=== PATIENT | male | born 1970 | race Caucasian/White ===

== ENCOUNTER 2017-04-07 12:05 | Outpatient (CLI) | payer BC ==
[~2017-04-07] VITALS: Ht 180.3 cm; Wt 92.5 kg
[~2017-04-07 12:05] MED LIST: AC500T PO; ACHD5005 PO; ASPI-587 PO; BISO1TAB8 PO; CYCL10TA9 PO; PRD20T PO; TRAM50TA2 PO
[2017-04-07 12:19] VITALS: BP 119/78
[2017-04-07] MEDS ORDERED: ASPI-999 PO (12:22)
[2017-04-07] MEDS ORDERED: TRAM50TA2 PO (12:22)
[2017-04-07] MEDS ORDERED: BISO1TAB3 PO (12:22)
== END 2017-04-07 12:25 | disposition home or self-care (01) ==
LOC: PREOP 12:05
PROVIDERS: ATTEND Podiatrist Foot & Ankle Surgery
DX: Z01.818 Encounter for other preprocedural examination (principal); Z11.2 Encounter for screening for other bacterial diseases; M20.12 Hallux valgus (acquired), left foot; M89.372 Hypertrophy of bone, left ankle and foot
CPT/HCPCS: 87081

== ENCOUNTER → 2017-04-28 | Day surgery (SDC) | payer BC ==
[~2017-04-28] VITALS: Ht 180.3 cm; Wt 92.5 kg
[~2017-04-28] MED LIST changes: +ASPI-999 PO; +BISO1TAB3 PO; +BUPIVACAINE 0.5% 30 ML (SENSORCAINE) VIAL ONE; +CEPH500C PO; +DEXAMETHASONE 10 MG/ML (DECADRON) 1 ML VIAL ONE; +HYDROcodone/APAP 5 MG/325 MG (LORTAB) TAB PO PRN; +LACTATED RINGERS 1,000 ML IV PRN; +LACTATED RINGERS 1,000 ML IV SCH; +LIDOCAINE PF 2% 5 ML (XYLOCAINE) VIAL ONE; +MEPERIDINE (DEMEROL) INJ 50 MG/ML IVP PRN; +MIDAZOLAM 2 MG/2 ML (VERSED) VIAL ONE; +ONDANSETRON 4 MG/2 ML (SDV) Z0FRAN IVP PRN; +ONDANSETRON 4 MG/2 ML (SDV) Z0FRAN ONE; +SEVOFLURANE (ULTANE) 15 ML INHAL SOLN ONE; +ceFAZolin 1 GM/NS 50 ML IVPB IV ONE; +ceFAZolin INJECTION 1,000 MG in NS (IVPB) 50 ML IV ONE; +fentaNYL INJECTION 100 MCG/2 ML AMP ONE; +morphine INJ 10 MG/ML 1ML (SYR OR VIAL) IVP PRN; +proPOfol 200 MG/20 ML (DIPRIVAN) VIAL IV ONE
[2017-04-28 08:55] VITALS: BP 128/81
--- NOTE | 2017-04-28 09:34 | Progress Note-Pre Operative ---
Pre-Operative Progress Note H&P Reviewed The H&P was reviewed, patient examined and no changes noted. Date Seen by Provider: Apr 28, 2017 Time Seen by Provider: 09:34 Date H&P Reviewed: Apr 28, 2017 Time H&P Reviewed: 09:34 Pre-Operative Diagnosis: Hallux Valgus, Hypertrophic 2nd Metatarsal, left foot ANGELIKA PAULINO DPM Apr 28, 2017 9:34 am
--- NOTE | 2017-04-28 11:43 | Progress Note-Post Operative ---
Post-Operative Progess Note Surgeon (s)/Pet Walker (s) Surgeon ANGELIKA PAULINO DPM Pet Walker: none Pre-Operative Diagnosis Hallux Valgus, Hypertrophic 2nd Metatarsal, left foot Post-Operative Diagnosis Same Procedure & Operative Findings Date of Procedure 04/28/17 Procedure Performed/Findings Modified Morgan-Braydon Bunionectomy, 2nd Metatarsal osteotomy, left Anesthesia Type General Estimated Blood Loss Estimated blood loss (mL): Miniamal Specimens/Packing Specimens Removed None ANGELIKA PAULINO DPM Apr 28, 2017 11:43 am
[2017-04-28 12:30] VITALS: BP 124/80
[2017-04-28 12:31] VITALS: BP 124/80
[2017-04-28 13:30] VITALS: BP 126/78
--- NOTE | 2017-04-28 13:44 | Physical Therapy Progress Note ---
Therapy Progress Note Orders received for gait training; NWKelly GUEVARA. Pt has crutches at home and has practiced them on his own. Reports he feels able to use them safely and reports he has a ramp he plans to use but has also practiced a step. Pt did stand and walk 100 ft with crutches, NWB left safely. Pt appears safe with crutch use. Educated on safety with throw rugs and wet surfaces. Pt voiced understanding and no questions noted. [id number] visit only. SANDIE CERVANTES PT Apr 28, 2017 13:44
--- NOTE | 2017-04-28 15:42 | Diagnostic Imaging Report ---
INDICATION: Metatarsus primus varus and hallux valgus. FINDINGS: There are post surgical changes of bunion correction in the left foot. The alignment is grossly normal. The soft tissues are unremarkable. IMPRESSION: Postsurgical changes of bunionectomy correction. Dictated by: Dictated on workstation # [id number]
--- NOTE | 2017-04-29 00:01 | OPERATIVE REPORT ---
DATE OF SERVICE: 04/28/2017 SURGEON: Angelika Paulino DPM PREOPERATIVE DIAGNOSES: Hallux abductovalgus with metatarsal primus varus, left foot; hypertrophic second metatarsal head, left foot; possible plantar plate tear left second metatarsophalangeal joint. POSTOPERATIVE DIAGNOSES: Hallux abductovalgus with metatarsal primus varus, left foot; hypertrophic second metatarsal head, left foot; intact plantar plate. PROCEDURE: 1. Modified Morgan-Braydon bunionectomy, left. 2. Second metatarsal osteotomy, left. WOUND CLASS: Clean. ANESTHESIA: General. HEMOSTASIS: Pneumatic thigh tourniquet at 300 mmHg. INDICATION: This 46-year-old male presents complaining of a painful bunion and pain to the second metatarsophalangeal joint, left foot. Conservative therapy is met without satisfactory results and the patient is agreeable to surgical intervention after risks and complications were discussed at length. No guarantees were extended to the patient and he is willing to proceed. DESCRIPTION OF PROCEDURE: The patient was brought back to the operating table, placed in a secure supine position. General anesthetic was then induced. Appropriate timeout was performed. Pneumatic thigh tourniquet was placed on the left lower extremity over several layers of padding. The left foot was then prepped and draped in a normal sterile manner. The left foot was then elevated, allowed to exsanguinate after which the tourniquet was inflated to 300 mmHg. Attention was then directed to the dorsal aspect of the first metatarsophalangeal joint where a 6 cm longitudinal linear incision was created. The incision was deepened in the same plane with great care to identify and retract all vital neurovascular structures. All the necessary blood vessels were cauterized as encountered. A longitudinal capsulotomy was performed exposing the hypertrophic medial eminence of the first metatarsal head, which was resected utilizing a power sagittal saw. Blunt dissection was carried out into the first intermetatarsal space where a lateral release was performed. There is a release of the conjoint tendon of the adductor hallucis as well as a lateral capsulorrhaphy as well as a release of the fibular sesamoidal ligament. The hallux was then forcibly adducted releasing additional fibers holding it in its abnormal position. Attention was redirected to the medial aspect of the first metatarsal where a [employer]-type osteotomy was performed allowing the capital fragment to translate from medial to lateral and fixated in its corrected position utilizing a Steinmann pin that was threaded 560 force driven from dorsal proximal to plantar distal and a second threaded K wire was used from dorsal medial to plantar lateral of 0.062 diameter. Excellent bony apposition and good fixation was appreciated at this time. The K wires were cut flush with the dorsal aspect of the first metatarsal and great care was taken not to penetrate the articular cartilage. The left hallux remained laterally deviated and an Braydon type procedure was then performed. Subperiosteal dissection was carried out to the diaphysis of the left hallux after which a wedge of bone was resected with the base medial and the lateral cortices held intact. A 28-gauge monofilament wire was passed through the commercial pilot holes to the dorsal medial aspect of the osteotomy securing the osteotomy in a closed position. Excellent bony apposition and fixation was appreciated at this time. The wounds were flushed with copious amounts of normal saline and closure was then performed in layers. Deep closure was performed with 3-0 Vicryl, superficial with 4-0 Vicryl, skin closure with 4-0 Prolene in a horizontal mattress type stitch. Attention was then directed to the dorsal aspect of the left second ray where a 4 cm longitudinal linear incision was created. The incision was deepened in the same plane with great care to identify and retract all vital neurovascular structures. All the necessary blood vessels were cauterized as encountered. The incision was deepened down to the capsular tissue just medial to the extensor digitorum longus tendon where a longitudinal capsulotomy was performed. The extensor tendons were reflected laterally and the medial lateral collateral ligaments were released, the second metatarsophalangeal joint exposing the hypertrophic head of the left second metatarsal. Next, utilizing a power sagittal saw, a Stephanie type osteotomy was then performed. Capital fragment was translocated proximally and fixated in a proximal position utilizing a 0.062 smooth K wire. A second K wire was placed from dorsal to plantar to the base of the proximal phalanx and this allowed to a distractor to be applied inspecting the plantar plate. No rent or solomon rupture was identified. The wound was flushed with copious amounts of normal saline. Next, utilizing standard technique a 2.0 snap-off screw of 13 mm of length was placed from dorsal to plantar to the second metatarsal osteotomy with the capital fragment placed in anatomical position. The excess metatarsal head was reduced with a rongeur followed by hand rasp. Excellent range of motion was appreciated at the left second metatarsophalangeal joint. Excellent bony apposition fixation was noted at the second metatarsal osteotomy. The wound was flushed with copious amounts of normal saline and closure was then performed in layers. Deep closure was performed with 3-0 Vicryl, superficial with 4-0 Vicryl, skin closure with 4-0 Prolene in a horizontal mattress type stitch. Postoperative injection consisted of 18 mL of 0.5% Marcaine injected in local infused into the surgical site followed by 10 mg of dexamethasone to the first intermetatarsal space, left foot. Postoperative dressing consisted of Betadine soaked Adaptic, sterile 4 x 4, sterile Kerlix; all secured with Coban wrap. The patient tolerated the anesthesia and procedure well, was transported from the operating room to the recovery area with vital signs stable and vascular status intact to all digits of the left foot. He is to be nonweightbearing on the left foot with crutches. The patient was given instructions as well as prescription for Keflex and Vicodin. Job ID: [id number] DocumentID: [id number] Dictated Date: 04/28/2017 12:06:56 Inspector Motor Vehicles Date: 04/29/2017 00:00:25 Dictated By: ANGELIKA PAULNIO DPM
== END | disposition home or self-care (01) ==
LOC: SDC 08:50
PROVIDERS: ATTEND Podiatrist Foot & Ankle Surgery
DX: M20.12 Hallux valgus (acquired), left foot (principal); M89.372 Hypertrophy of bone, left ankle and foot; I10 Essential (primary) hypertension; I48.91 Unspecified atrial fibrillation; Z79.899 Other long term (current) drug therapy; Z79.82 Long term (current) use of aspirin
CPT/HCPCS: 73620

== ENCOUNTER → 2019-06-28 | Outpatient (CLI) | payer BC ==
[~2019-06-28] MED LIST changes: -BUPIVACAINE 0.5% 30 ML (SENSORCAINE) VIAL ONE; -DEXAMETHASONE 10 MG/ML (DECADRON) 1 ML VIAL ONE; -HYDROcodone/APAP 5 MG/325 MG (LORTAB) TAB PO PRN; -LACTATED RINGERS 1,000 ML IV PRN; -LACTATED RINGERS 1,000 ML IV SCH; -LIDOCAINE PF 2% 5 ML (XYLOCAINE) VIAL ONE; -MEPERIDINE (DEMEROL) INJ 50 MG/ML IVP PRN; -MIDAZOLAM 2 MG/2 ML (VERSED) VIAL ONE; -ONDANSETRON 4 MG/2 ML (SDV) Z0FRAN IVP PRN; -ONDANSETRON 4 MG/2 ML (SDV) Z0FRAN ONE; -SEVOFLURANE (ULTANE) 15 ML INHAL SOLN ONE; +TRM50T PO; -ceFAZolin 1 GM/NS 50 ML IVPB IV ONE; -ceFAZolin INJECTION 1,000 MG in NS (IVPB) 50 ML IV ONE; -fentaNYL INJECTION 100 MCG/2 ML AMP ONE; -morphine INJ 10 MG/ML 1ML (SYR OR VIAL) IVP PRN; -proPOfol 200 MG/20 ML (DIPRIVAN) VIAL IV ONE
--- NOTE | 2019-06-28 11:55 | Diagnostic Imaging Report ---
Indication: Neck pain Cervical spine AP and lateral views of the cervical spine shows normal vertebral body height and alignment. Intervertebral disc spaces are slightly narrowed at C5-C6 and C6-C7. There is no fracture or prevertebral soft tissue swelling. IMPRESSION: Early degenerative disc changes C5-C6 and C6-C7. No acute abnormality seen. Dictated by: Dictated on workstation # [id number]
--- NOTE | 2019-06-28 11:56 | Diagnostic Imaging Report ---
Indication: Back pain Thoracic spine AP lateral views of the thoracic spine shows normal vertebral body height and alignment. Disc spaces are well-maintained. IMPRESSION: Unremarkable thoracic spine Dictated by: Dictated on workstation # [id number]
== END ==
LOC: RAD 11:29
PROVIDERS: ATTEND Nurse Practitioner Family
DX: M50.323 Other cervical disc degeneration at C6-C7 level (principal); M54.6 Pain in thoracic spine
CPT/HCPCS: 72040; 72072

== ENCOUNTER → 2019-07-06 | Outpatient (CLI) | payer BC ==
--- NOTE | 2019-07-06 17:53 | Diagnostic Imaging Report ---
PROCEDURE: MR imaging cervical spine without contrast. TECHNIQUE: Multiplanar, multisequence MR imaging of the cervical spine was performed without contrast. INDICATION: Neck pain and left shoulder pain and left arm numbness. COMPARISON: No prior studies are available for comparison. FINDINGS: There is straightening of the normal cervical lordotic curvature. Alignment is normal. Marrow signal intensity is unremarkable. No geographic marrow lesion is seen. Craniocervical junction is unremarkable. There is generalized cervical degenerative disc disease with variable disc space narrowing and desiccation. Cervical cord does show normal homogeneous signal intensity and normal morphology. C2-C3: Small midline disc bulge is noted, however no significant central canal narrowing is detected. The neuroforamina are widely patent. C3-C4: Broad-based disc/osteophyte complex indents the ventral thecal sac. This does result in moderate central canal narrowing. There is also moderate right and mild left neuroforaminal narrowing. C4-C5: Broad-based disc/osteophyte complex indents the ventral thecal sac producing mild narrowing of the canal. There is mild right neuroforaminal narrowing as well. C5-C6: Broad-based disc/osteophyte complex and uncovertebral joint degenerative change result in moderate central canal stenosis and significant bilateral neuroforaminal stenosis. C6-C7: Broad-based disc/osteophyte complex, slightly asymmetric to the left, is noted producing moderate central canal stenosis. There is also significant bilateral neuroforaminal stenosis. C7-T1: Endplate osteophytes are noted. No significant central canal or neuroforaminal stenosis is identified. Paraspinous tissues are unremarkable. IMPRESSION: Multilevel cervical spondylosis with multilevel central canal and neuroforaminal stenosis, described level by level above. Dictated by: Dictated on workstation # [id number]
== END ==
LOC: RAD 16:22
PROVIDERS: ATTEND Nurse Practitioner Family
DX: M48.02 Spinal stenosis, cervical region (principal); M47.22 Other spondylosis with radiculopathy, cervical region
CPT/HCPCS: 72141

== ENCOUNTER 2021-11-21 05:40 | Outpatient (CLI) | payer BC ==
[~2021-11-21] VITALS: Ht 180.3 cm; Wt 92.7 kg
[~2021-11-21 05:40] MED LIST changes: +BISO-2 PO; -BISO1TAB3 PO
== END 2021-11-26 07:18 | disposition home or self-care (01) ==
LOC: PREOP 05:40
PROVIDERS: ATTEND Internal Medicine
DX: Z01.818 Encounter for other preprocedural examination (principal)

== ENCOUNTER 2021-11-30 08:53 | Day surgery (SDC) | payer BC ==
--- NOTE | 2021-11-21 09:59 | HISTORY AND PHYSICAL ---
DATE OF SERVICE: COLONOSCOPY SUMMARY HISTORY OF PRESENT ILLNESS: The patient is a 51-year-old white male referred by Dr. Stokes for his first screening colonoscopy. He is deemed to be of average risk as he is not aware of any family history for colon cancer or GI tract malignancy. He is not aware of any family history for colon polyps. He denies bright red blood per rectum, melena, abdominal pain, change in bowel habit or change in weight. PAST MEDICAL HISTORY: Significant for hypertension and distant past history of atrial fibrillation. As I recall, he underwent ablation and has had no recurrence and is not on anticoagulant therapy. PAST SURGICAL HISTORY: He has had some nasal surgery for deviated septum. Reports no other significant surgeries. SOCIAL HISTORY: He is employed. No past smoking history. No significant alcohol intake. REVIEW OF SYSTEMS: CONSTITUTIONAL: Denies night sweats, chills, fever, change in weight. GASTROINTESTINAL: As noted in the HPI. PULMONARY: Denies cough, wheezing or shortness of breath. CARDIOVASCULAR: Denies dyspnea on exertion, chest discomfort, orthopnea, PND, pedal edema, syncope or palpitations. PHYSICAL EXAMINATION: GENERAL: Reveals a pleasant white male in no acute distress. VITAL SIGNS: Weight 207 pounds, blood pressure 120/60. HEENT: Unremarkable. Sclerae nonicteric. CHEST: Clear to auscultation. CARDIOVASCULAR: Reveals a regular rate and rhythm without murmur, S3 or S4. ABDOMEN: Soft, supple without mass, organomegaly or tenderness. EXTREMITIES: Reveal no cyanosis, clubbing or edema. ASSESSMENT AND PLAN: The patient is being set up for his first screening colonoscopy, deemed to be of average risk. Prep instructions were given, and questions were answered. Electronic medical record was reviewed as well as recent office records from Dr. Stokes. I thank you for the referral of this pleasant gentleman. Job ID: [id number] DocumentID: [id number] Dictated Date: 10/31/2021 13:18:33 Rod Puller Date: 10/31/2021 13:48:36 Dictated By: MANASA RIVAS MD
[~2021-11-30] VITALS: Ht 180 cm; Wt 92.7 kg
[2021-11-30] MEDS ORDERED: LACTATED RINGERS 1,000 ML IV ONE (09:00)
[2021-11-30] MEDS ORDERED: LACTATED RINGERS 1,000 ML IV STA (09:08)
[2021-11-30 09:25] VITALS: BP 133/83
--- NOTE | 2021-11-30 09:37 | Pre-Op Note & Conscious Sedat ---
Pre-Operative Progress Note Date H&P Reviewed: Nov 30, 2021 Time H&P Reviewed: 09:36 History & Physical: H&P Reviewed, Patient Examed, No changes noted Pre-Op Diagnosis: screening Conscious Sedation Pre-Proced ASA Score 2 For ASA 3 and 4: Consider anesthesia and medical clearance. Also, for patients with a history of failed moderate sedation consider anesthesia. Airway Lungs Heart ASA score ASA 1: a normal healthy patient ASA 2: a patient with a mild systemic disease (mid diabetes, controlled hypertension, obesity ASA 3: a patient with a severe systemic disease that limits activity (angina, COPD, prior Myocardial infarction) ASA 4: a patient with an incapacitating disease that is a constant threat to life (CHF, renal failure) ASA 5: a moribund patient not expected to survive 24 hrs. (ruptured aneurysm) ASA 6: a declared brain- patient whose organs are being harvested. For emergent operations, add the letter E after the classification Mallampati Classification Grade 2 Sedation Plan Analgesia, Amnesia, Plan communicated to team members, Discussed options with patient/fam, Discussed risks with patient/fam The patient is an appropriate candidate to undergo the planned procedure, sedation, and anesthesia. The patient immediately re-assessed prior to indication. MANASA RIVAS MD Nov 30, 2021 09:36
[2021-11-30] MEDS ORDERED: PROPOFOL INJECTION 50 ML IV ONE (10:00)
[2021-11-30] MEDS ORDERED: MIDAZOLAM 2 MG/2 ML (VERSED) VIAL ONE (10:00)
--- NOTE | 2021-11-30 10:24 | Progress Note-Post Operative ---
Post-Procedure Note Physician (s)/Can Intake Worker (s) Physician MANASA RIVAS MD Pre-Procedure Diagnosis Pre-Procedure Diagnosis: screening Post-Procedure Diagnosis Post-operative diagnosis: Normal colon MANASA RIVAS MD Nov 30, 2021 10:24
[2021-11-30 10:25] VITALS: BP 109/60
[2021-11-30 10:27] VITALS: BP 116/64
--- NOTE | 2021-11-30 13:08 | Anesthesia-General Post-Op ---
MAC Patient Condition Mental Status/LOC: Same as Preop Cardiovascular: Satisfactory Nausea/Vomiting: Absent Respiratory: Satisfactory Pain: Controlled Complications: Absent Post Op Complications Complications None Follow Up Care/Instructions Patient Instructions None needed. Anesthesiology Discharge Order Discharge Order Patient is doing well, no complaints, stable vital signs, no apparent adverse anesthesia problems. No complications reported per nursing. DIANNA MCMANUS CRNA Nov 30, 2021 13:08
--- NOTE | 2021-11-30 19:37 | OPERATIVE REPORT ---
DATE OF SERVICE: COLONOSCOPY SUMMARY INDICATION FOR THE PROCEDURE: Screening. DESCRIPTION OF PROCEDURE: The patient was placed in the left lateral decubitus position. Prior to undergoing colonoscopy, digital rectal evaluation was performed. Anal sphincter tone was normal and the perianal reflexes intact. The prostate was unremarkable to digital inspection. No abnormalities were noted on digital inspection of anal canal or distal rectal vault. The colonoscope was then inserted into the rectum and under direct visualization advanced to the cecum. Cecum was identified by identification of ileocecal valve and cecal strap and appendiceal orifice. Photographic documentation was obtained. Quality of prep was fair. FINDINGS: There was no evidence for internal or external hemorrhoids. The rectum, sigmoid colon, descending colon, splenic flexure, transverse colon, hepatic flexure, ascending colon, and cecum were unremarkable with no evidence for neoplasia or diverticular disease. ASSESSMENT: Normal colonoscopy to the cecum. We would advocate consideration for repeat screening colonoscopy in 10 years. Job ID: [id number] DocumentID: [id number] Dictated Date: 11/30/2021 10:19:22 Aesthetician Date: 11/30/2021 19:37:03 Dictated By: MANASA RIVAS MD
== END 2021-11-30 11:15 | disposition home or self-care (01) ==
LOC: ENDO 08:53
PROVIDERS: ATTEND Internal Medicine
DX: Z12.11 Encounter for screening for malignant neoplasm of colon (principal)